=== PATIENT | male | born 1965 | race Caucasian/White ===

== ENCOUNTER 2023-01-17 10:36 | Outpatient (CLI) | payer OTHER | END 2023-01-17 23:59 | disposition home or self-care (01) | LOC: RAD 10:36 | PROVIDERS: ATTEND Family Medicine | DX: S83.231A Complex tear of medial meniscus, current injury, right knee, initial encounter (principal); M71.21 Synovial cyst of popliteal space [Baker], right knee; M94.261 Chondromalacia, right knee; X58.XXXA Exposure to other specified factors, initial encounter; Y93.89 Activity, other specified; Y92.89 Other specified places as the place of occurrence of the external cause; Y99.8 Other external cause status | CPT/HCPCS: 73721 ==